=== PATIENT | male | born 1985 | race Caucasian/White ===

== ENCOUNTER 2023-06-18 10:25 | Emergency (ER) | payer MEDICAID ==
[2023-06-18] MEDS ORDERED: Tetracaine HCl/PF 0.5% 4 ML Bottle EYELF ONE (10:43)
[2023-06-18 11:03] VITALS: BP 126/88; PULSE 95
[2023-06-18] MEDS ORDERED: Erythromycin Base 0.5% Ophth Oint 3.5 GM Tube EYEBOTH ONE (11:25)
== END 2023-06-18 11:47 | disposition home or self-care (01) ==
LOC: JP.ED 10:25
DX: S05.02XA Injury of conjunctiva and corneal abrasion without foreign body, left eye, initial encounter (principal)
CPT/HCPCS: 99283; A9270